=== PATIENT | female | born 1960 | race Caucasian/White ===

== ENCOUNTER 2023-05-04 21:15 | Emergency (ER) | payer MEDICARE, OTHER ==
[~2023-05-04] VITALS: Ht 170.2 cm; Wt 116.0 kg
[2023-05-04] MEDS ORDERED: ATORVASTATIN CA10 MG PO (21:30)
[2023-05-04] MEDS ORDERED: FESOTERODINE FUM8 MG PO (21:30)
[2023-05-04] MEDS ORDERED: METFORMIN HCL500 MG PO (21:30)
[2023-05-04] MEDS ORDERED: TRAZODONE HCL50 MG PO (21:30)
[2023-05-04] MEDS ORDERED: SERTRALINE HCL50 MG PO (21:30)
[2023-05-04] MEDS ORDERED: DICLOFENAC SODI75 MG PO (21:30)
[2023-05-04 22:13] LABS: EOSINOPHILS 1.7 % (0-6); HEMATOCRIT 41.6 % (35.0-50.0); HEMOGLOBIN 13.4 g/dL (12.0-18.0); LYMPHOCYTES 23.4 % (24-44); MCH 28.8 (27-36); MCHC 32.2 g/dl (30-36); MCV 89.5 fl (81-99); MONOCYTES 8.7 % (0-12); NEUTROPHILS 65.2 % (39-80); PLATELET COUNT 295 K/uL (140-440); RBC 4.65 M/ul (4.3-5.7); RDW 14.4 (10.5-15.0)
[2023-05-04 22:25] LABS: INFLUENZA B NAA NEGATIVE (NEGATIVE); RESPIRATORY SYNCYTIAL VIR NAA NEGATIVE (NEGATIVE)
[2023-05-04 22:29] LABS: ALBUMIN 3.6 g/dL (3.4-5.0); ALBUMIN/GLOBULIN RATIO 1.09 (1.1-2.4); ANION GAP 13.3 (7-21); BILIRUBIN, TOTAL 0.4 ng/dL (0.2-1.0); BUN/CREATININE RATIO 25.22 (6.0-28.6); CALCIUM 9.3 mg/dL (8.5-10.1); CREATININE, SERUM 1.11 mg/dL (0.55-1.02); MAGNESIUM 1.9 mg/dL (1.8-2.4); POTASSIUM 4.3 mmol/L (3.5-5.1); PROTEIN, TOTAL 6.9 g/dL (6.4-8.2)
[2023-05-05 00:15] VITALS: BP 131/69
--- NOTE | 2023-05-05 07:14 | EKG ---
[facility] [address] [place], [place] [address] Signed Normal sinus rhythm Nonspecific ST and T wave abnormality Abnormal ECG No previous ECGs available Confirmed by PONCE BURROUGHS MD ([id number] on 05/05/2023 7:14:32 AM Electronically Signed By: PONCE BURROUGHS 05/05/23 0714 PATIENT NAME: VENTURA MICHELE Electrocardiogram DATE OF : 58 PHYSICIAN: PONCE BURROUGHS REPORT #: [id number] REPORT IS CONFIDENTIAL AND NOT TO BE RELEASED WITHOUT AUTHORIZATION
== END 2023-05-05 00:15 | disposition home or self-care (01) ==
LOC: ED 21:15
PROVIDERS: Internal Medicine
DX: M94.0 Chondrocostal junction syndrome [Tietze] (principal); E10.9 Type 1 diabetes mellitus without complications; E78.5 Hyperlipidemia, unspecified; Z11.52 Encounter for screening for COVID-19; Z79.899 Other long term (current) drug therapy
CPT/HCPCS: 36415; 71045; 80053; 83735; 84484; 85025; 85379; 87502; 93005; 93010; 96374; 99285-25; A9270; C9803; U0002